=== PATIENT | male | born 1995 | race Caucasian/White ===

== ENCOUNTER 2021-05-17 08:23 | Emergency (ER) | payer OTHER ==
[2021-05-17] MEDS ORDERED: OMEPRAZOLE20 MG PO (08:50)
== END 2021-05-17 09:02 | disposition home or self-care (01) ==
LOC: ER1 08:23
DX: R11.2 Nausea with vomiting, unspecified (principal); Z87.11 Personal history of peptic ulcer disease; K21.9 Gastro-esophageal reflux disease without esophagitis; F17.210 Nicotine dependence, cigarettes, uncomplicated; Z79.899 Other long term (current) drug therapy
CPT/HCPCS: 99284